=== PATIENT | male | born 1950 | race Caucasian/White ===

== ENCOUNTER 2018-02-16 07:07 | Day surgery (SDC) | payer MEDICARE, OTHER ==
[2018-02-15 09:52] VITALS: BMI 25.8
[2018-02-16] MEDS ORDERED: Midazolam HCl 2 mg/2 ml Vial ONE (09:25)
--- NOTE | 2018-02-16 12:13 | OP ---
DATE OF PROCEDURE: 02/16/2018 SURGEON: Parish Mcclure M.D. PROCEDURES: EGD and colonoscopy. PREPROCEDURE DIAGNOSES: Reflux and prior history of adenomatous colon polyps, last colonoscopy in . POSTOPERATIVE DIAGNOSES: 1. Mild reflux esophagitis, LA grade A. 2. Otherwise, normal esophagogastroduodenoscopy. 3. Normal colonoscopy. RECOMMENDATIONS: 1. Repeat colonoscopy in 5 years. 2. Antireflux regimen. I have instructed him in use of p.r.n. OTC PPIs if needed. ANESTHESIA: TIVA. PROCEDURE IN DETAIL: After the patient was informed of the risks, benefits and possible complication s of endoscopy and perforation, bleeding, reaction to medication, and aspiration, informed consent wa s obtained. The patient was brought to endoscopy suite where he was sedated in gradual fashion. Onc e he was comfortable, a bite block was placed in the incisura orifice. The endoscope was advanced in to the esophagus, stomach, second and third portion of the duodenum and slowly removed. There was go od visualization of mucosa. The duodenum was normal. The stomach were normal in forward and retrofl exed views. In the distal esophagus the Z-line was normal. There was mild erythema at the Z-line co nsistent with very mild reflux esophagitis. The esophagus was otherwise normal. The scope was remov ed. The patient was turned in the room and a rectal examination performed which was normal. The endoscop e was advanced in the anal canal through the colon to cecum which was identified by the ileocecal justa ve and appendiceal orifice. The prep was very good. The right colon was looked at in forward and re troflexed views. The remaining colon was visualized well and looking behind folds with no polyps see n. Retroflexion in the rectum was normal. The scope was removed. The patient tolerated the procedu re well, no complications.
[2018-02-16] MEDS ORDERED: Lidocaine 1% PF 5 ML VIAL ONE (14:57)
[2018-02-16] MEDS ORDERED: PROPOFOL 200 MG/20 ML VIAL ONE (14:57)
== END 2018-02-16 11:13 | disposition home or self-care (01) ==
LOC: SDC 07:07
PROVIDERS: ATTEND Internal Medicine Gastroenterology
PROC: 0DJ08ZZ Inspection of Upper Intestinal Tract, Via Natural or Artificial Opening Endoscopic (ICD-10-PCS; principal; 2018-02-16)
PROC: 0DJD8ZZ Inspection of Lower Intestinal Tract, Via Natural or Artificial Opening Endoscopic (ICD-10-PCS; 2018-02-16)
DX: Z12.11 Encounter for screening for malignant neoplasm of colon (principal); K21.9 Gastro-esophageal reflux disease without esophagitis; N40.0 Benign prostatic hyperplasia without lower urinary tract symptoms; M10.9 Gout, unspecified; Z86.010 Personal history of colon polyps; Z87.891 Personal history of nicotine dependence; Z79.82 Long term (current) use of aspirin; Z79.899 Other long term (current) drug therapy; Z88.8 Allergy status to other drugs, medicaments and biological substances; Z91.048 Other nonmedicinal substance allergy status
CPT/HCPCS: 43235; G0105; J2001; J2250; J2704

== ENCOUNTER 2019-03-22 10:06 | Outpatient (CLI) | payer MEDICARE, OTHER ==
[2019-03-22 11:47] LABS: Hemoglobin 13.7 g/dL (14.0-18.0); Mean Corpuscular HGB CONC 32.3 g/dL (32.0-36.0); Mean Corpuscular Hemoglobin 30.9 pg (27.0-31.0); Mean Corpuscular Volume 95.4 fL (78.0-98.0); Platelet Count 186 thou/uL (130-400); RBC Distribution Width 12.2 % (11.5-14.5); Red Blood Cell (RBC) Count 4.45 mill/uL (4.70-6.10); White Blood Cell (WBC) Count 3.8 thou/uL (4.8-10.8)
[2019-03-22 11:53] LABS: PTT 29.6 SEC (22.9-36.1); Prothrombin Time 13.5 SEC (12.0-14.7)
[2019-03-22 12:04] LABS: Bilirubin Negative (Negative); Blood, Urine Negative (Negative); Clarity CLEAR (Clear); Glucose, Urine (Dipstick) Negative (Negative); Leukocyte Negative (Negative); Nitrite Negative (Negative); Protein, Urine (Dipstick) Negative (Neg-Trace); Specific Gravity, Urine 1.019 (1.002-1.036); Urobilinogen 0.2 mg/dL (0.2-1.0)
[2019-03-22 12:07] LABS: Bacteria/HPF None Seen HPF (None Seen); Hyaline Casts/LPF 0-3 HYALINE CAST LPF (0-3 Hyaline); RBC/HPF 0-3 HPF (0-3); Squamous Epithelial 0-3 HPF (0-3); WBC/HPF 0-3 HPF (0-3)
[2019-03-22 12:18] LABS: Anion Gap 13 mmol/L (10-20); BUN (Urea Nitrogen) 16 mg/dL (8.4-25.7); Calc. Creatinine Clearance 0 mL/min (70-130); Calcium 9.2 mg/dL (7.8-10.44); Carbon Dioxide 27 mmol/L (23-31); Chloride 104 mmol/L (98-107); Estimated GFR-MDRD 73; Glucose 87 mg/dL (80-115); Potassium 4.6 mmol/L (3.5-5.1); Sodium 139 mmol/L (136-145)
== END 2019-03-22 10:07 | disposition home or self-care (01) ==
LOC: LABBT 10:06
PROVIDERS: ATTEND Urology
DX: Z01.818 Encounter for other preprocedural examination (principal); N40.0 Benign prostatic hyperplasia without lower urinary tract symptoms
CPT/HCPCS: 80048; 81001; 85027; 85610; 85730; 87086; 93005; 93010

== ENCOUNTER 2019-03-30 06:51 | Day surgery (SDC) | payer MEDICARE, OTHER ==
[2019-03-22 10:19] VITALS: BMI 25.7
[2019-03-30] MEDS ORDERED: Levofloxacin 500 mg/D5W 100 ml Premix Bag ONE (09:35)
[2019-03-30] MEDS ORDERED: Midazolam HCl 2 mg/2 ml Vial ONE (10:48)
[2019-03-30] MEDS ORDERED: Fentanyl 100 MCG/2 ML VIAL ONE (10:48)
[2019-03-30] MEDS ORDERED: Propofol 500 MG/50 ML VIAL ONE (10:49)
[2019-03-30] MEDS ORDERED: Ketamine 50 MG/ML (10ML VIAL) ONE (10:49)
--- NOTE | 2019-03-30 14:30 | OP ---
DATE OF PROCEDURE: 03/30/2019 SERVICE: Urology. PREOPERATIVE DIAGNOSIS: Benign prostatic hyperplasia with obstruction. POSTOPERATIVE DIAGNOSIS: Benign prostatic hyperplasia with obstruction. PROCEDURE PERFORMED: UroLift procedure. INDICATION FOR PROCEDURE: Mr. Gil is a 68-year-old white male, who presented to me for BPH symptoms. He has been on both Rapaflo and Flomax and does not want to remain on either, although he is receiving some benefit from these medications. We discussed procedural based treatments including UroLift, which he has a lot of interest in and would like to proceed to forward with. Risks and benefits were discussed. DESCRIPTION OF PROCEDURE: After identification of armband and verification of consent, the patient was brought back to the operating room, where he underwent total intravenous anesthesia. He was placed in dorsal lithotomy position and prepped and draped in usual sterile fashion. After appropriate time-out, a lubricated 21-Pashto rigid cystoscope was introduced per urethra into the bladder. The bladder was normal as identified on previous cystoscopy. The prostate was obstructive. The UroLift device was brought in and the initial implant placed on the right lateral bladder closer to the bladder neck. We came approximately 2 cm proximal to the bladder neck with inward compression and 20-degree angling and fired the initial needle. The UroLift device was advanced until the white line was seen in the keyhole and the steel implant deployed. This did allow for good retraction of the prostate without being too close to the bladder neck. This procedure was repeated on the opposite side near the bladder neck and again near the verumontanum, but there was still some intervening lobes along the lateral aspect of the prostate that seemed to be somewhat obstructive. We decided to put 2 additional implants just below the original implants on the middle aspect of the prostate and 2 additional implants were deployed there, which resulted in a nice anterior channel which was wide open. There was a moderate amount of bleeding, which was not severe. The bladder was left full and the cystoscope was removed. An 18-Pashto Paul catheter was placed with ease into the bladder. A 10 mL of sterile water was placed into the balloon. This catheter was hooked up to gravity drainage. The patient was then awakened, taken to Day Stay for recovery in stable condition. COMPLICATIONS: None. ESTIMATED BLOOD LOSS: Minimal. RETAINED TUBES AND DRAINS: An 18-Pashto Paul catheter. SPECIMENS: None. IMPLANTS: Six UroLift device implants were used. DISPOSITION: We will monitor the patient's urine. He will either be sent home with or without a catheter based on the level of hematuria and voiding status. Job ID: [id number]
== END 2019-03-30 13:40 | disposition home or self-care (01) ==
LOC: SDC 06:51
PROVIDERS: ATTEND Urology
PROC: 0T7D8DZ Dilation of Urethra with Intraluminal Device, Via Natural or Artificial Opening Endoscopic (ICD-10-PCS; principal; 2019-03-30)
DX: N40.1 Benign prostatic hyperplasia with lower urinary tract symptoms (principal); N13.8 Other obstructive and reflux uropathy; K59.00 Constipation, unspecified; M10.9 Gout, unspecified; F17.290 Nicotine dependence, other tobacco product, uncomplicated; I34.1 Nonrheumatic mitral (valve) prolapse; I10 Essential (primary) hypertension; E27.40 Unspecified adrenocortical insufficiency; N52.01 Erectile dysfunction due to arterial insufficiency; Z79.82 Long term (current) use of aspirin; Z79.899 Other long term (current) drug therapy; Z88.8 Allergy status to other drugs, medicaments and biological substances; Z91.048 Other nonmedicinal substance allergy status; Z98.890 Other specified postprocedural states
CPT/HCPCS: C1889; J1956; J2250; J2704; J3010

== ENCOUNTER 2019-08-23 08:32 | Outpatient (CLI) | payer MEDICARE, OTHER ==
--- NOTE | 2019-08-23 10:29 | CT ---
CTA CHEST WITH IV CONTRAST AND 3D POST PROCESSING: HISTORY: Thoracic aortic aneurysm. COMPARISON: 06/27/2016 FINDINGS: The ectatic ascending thoracic aorta is stable, measuring 4 x 4.2 cm. The aortic lumen is well opacif ied without evidence of dissection. The pulmonary arteries are well opacified without filling defects to suggest pulmonary embolism. No pleural or pericardial effusions are seen. No pneumothoraces, focal areas of consolidation, lung n odules or masses are identified. Cysts in the liver are stable. IMPRESSION: 1. Stable ectatic thoracic aorta since 06/27/2016. 2. No CT evidence of thoracic aortic dissection of pulmonary embolism. POS: [facility]
[2019-08-23] MEDS ORDERED: Iopamidol-370 76% 500 ML 1 ML ONE (11:31)
== END 2019-08-23 08:33 | disposition home or self-care (01) ==
LOC: BICCT 08:32
PROVIDERS: ATTEND Internal Medicine Cardiovascular Disease
DX: I71.2 Thoracic aortic aneurysm, without rupture (principal)
CPT/HCPCS: 71275; 82565; Q9967

== ENCOUNTER 2020-09-05 13:05 | Outpatient (CLI) | payer MEDICARE, OTHER ==
[2020-09-05] MEDS ORDERED: Iopamidol 370 76% 100 ML VIAL ONE (13:44)
--- NOTE | 2020-09-05 14:25 | CT ---
Exam: CT angiogram chest with 3-D rendering: HISTORY: Ascending thoracic aortic aneurysm. Loop recorder overlying the left chest. COMPARISON: 08/23/2019 There is mild dilatation of the aortic root measures approximately 4.1 cm transversely. No evidence f or other focal aneurysm or dissection. Stable liver cysts. Loop recorder overlying the left chest. Probable small hiatal hernia. Stable appearance of the chest. No evidence for aortic dissection.
== END 2020-09-05 13:06 | disposition home or self-care (01) ==
LOC: BICCT 13:05
PROVIDERS: ATTEND Internal Medicine Cardiovascular Disease
DX: I71.2 Thoracic aortic aneurysm, without rupture (principal)
CPT/HCPCS: 71275; 82565; Q9967

== ENCOUNTER 2021-10-31 07:42 | Outpatient (CLI) | payer MEDICARE, BC | END 2021-10-31 07:43 | disposition home or self-care (01) | LOC: BICULT 07:42 | PROVIDERS: ATTEND Internal Medicine Gastroenterology | DX: R19.7 Diarrhea, unspecified (principal); K76.89 Other specified diseases of liver | CPT/HCPCS: 76700 ==

== ENCOUNTER 2022-11-04 07:54 | Outpatient (CLI) | payer MEDICARE, BC ==
[2022-11-04] MEDS ORDERED: Iopamidol 370 76% 100 ML VIAL ONE (09:13)
== END 2022-11-04 07:55 | disposition home or self-care (01) ==
LOC: CT 07:54
PROVIDERS: ATTEND Internal Medicine Cardiovascular Disease
DX: I35.9 Nonrheumatic aortic valve disorder, unspecified (principal); I71.21 Aneurysm of the ascending aorta, without rupture
CPT/HCPCS: 71275; 82565; Q9967

== ENCOUNTER 2024-02-22 10:05 | Outpatient (CLI) | payer MEDICARE, BC ==
[2024-02-22] MEDS ORDERED: Iopamidol 370 76% 100 ML VIAL ONE (11:20)
== END 2024-02-22 10:06 | disposition home or self-care (01) ==
LOC: BICCT 10:05
PROVIDERS: ATTEND Physician Assistant
DX: I71.21 Aneurysm of the ascending aorta, without rupture (principal); G45.3 Amaurosis fugax
CPT/HCPCS: 71275; 82565; Q9967

== ENCOUNTER 2024-10-20 10:56 | Outpatient (CLI) | payer MEDICARE, BC ==
[2024-10-20 12:47] LABS: #Basophils 0.06 10x3/uL (0.0-0.2); %Basophils 1.3 % (0.0-1.0); %Lymphocytes 31.6 % (21.0-51.0); %Monocytes 10.1 % (0.0-10.0); %Neutrophils 47.8 % (42.0-75.0); Hematocrit 39.9 % (42.0-52.0); Hemoglobin 13.4 g/dL (14.0-18.0); Mean Corpuscular HGB CONC 33.6 g/dL (32.0-36.0); Mean Corpuscular Volume 92.4 fL (78.0-98.0); Mean Platelet Volume 10.4 fL (7.4-10.4); Platelet Count 241 10x3/uL (130-400); RBC Distribution Width 13.1 % (11.5-14.5); Red Blood Cell (RBC) Count 4.32 mill/uL (4.70-6.10)
[2024-10-20 12:59] LABS: Bacteria/HPF None Seen HPF (None Seen); Bilirubin Negative (Negative); Blood, Urine Negative (Negative); Clarity Clear (Clear); Glucose, Urine (Dipstick) Normal (Negative); Ketone, Urine Negative (Negative); Leukocyte Negative Leu/uL (Negative); Nitrite Negative (Negative); Protein, Urine (Dipstick) Negative (Neg-Trace); RBC/HPF None Seen HPF (0-3); Specific Gravity, Urine 1.008 (1.002-1.036); Squamous Epithelial None Seen HPF (0-3); Urobilinogen Normal mg/dL (Less than 2); WBC/HPF 0-3 HPF (0-3)
[2024-10-20 13:03] LABS: Anion Gap 9 mmol/L (10-20); BUN (Urea Nitrogen) 16 mg/dL (8.4-25.7); Calc. Creatinine Clearance 0 mL/min (70-130); Calcium 9.4 mg/dL (7.8-10.44); Carbon Dioxide 29 mmol/L (23-31); Chloride 105 mmol/L (98-107); Estimated GFR 87; Glucose 94 mg/dL (83-110); Potassium 4.2 mmol/L (3.5-5.1); Sodium 139 mmol/L (136-145)
[2024-10-20 14:38] LABS: INR-International Normal Ratio 0.9; PTT 28.1 sec (22.9-36.1); Prothrombin Time 12.6 sec (12.0-14.7)
== END 2024-10-20 10:57 | disposition home or self-care (01) ==
LOC: LABBT 10:56
PROVIDERS: ATTEND Urology
DX: Z01.818 Encounter for other preprocedural examination (principal); N40.1 Benign prostatic hyperplasia with lower urinary tract symptoms
CPT/HCPCS: 80048; 81001; 85025; 85610; 85730; 87086; 93005; 93010

== ENCOUNTER 2024-11-02 07:28 | Day surgery (SDC) | payer MEDICARE, BC ==
[2024-10-20 11:14] VITALS: BMI 25.4
[2024-11-02] MEDS ORDERED: Lidocaine 1% MPF 2 ML VIAL ONE (08:59)
[2024-11-02] MEDS ORDERED: LevoFLOXacin D5W 500 mg (100 mL) BAG ONE (09:00)
[2024-11-02] MEDS ORDERED: fentaNYL PF 100 MCG/2 ML SYRINGE ONE (09:16)
[2024-11-02] MEDS ORDERED: Lidocaine 1% PF 5 ML VIAL ONE (09:17)
[2024-11-02] MEDS ORDERED: Ondansetron PF 4 MG/2 ML Vial ONE (09:17)
[2024-11-02] MEDS ORDERED: PROPOFOL 20 ML ONE (09:17)
[2024-11-02] MEDS ORDERED: Dexamethasone 20 MG/5 ML VIAL ONE (09:17)
[2024-11-02] MEDS ORDERED: Lidocaine 2% 6 ML (Jelly) SYR ONE (09:17)
[2024-11-02] MEDS ORDERED: Midazolam HCl 2 mg/2 ml Vial ONE (09:35)
[2024-11-02] MEDS ORDERED: ePHEDrine Sulfate 50 MG/10 ML VIAL ONE (09:51)
[2024-11-02] MEDS ORDERED: Oxybutynin 5 MG TAB ONE (11:15)
[2024-11-02] MEDS ORDERED: Phenazopyridine HCl 100 MG TAB ONE (11:15)
== END 2024-11-02 15:08 | disposition home or self-care (01) ==
LOC: SDC 07:28
PROVIDERS: ATTEND Urology
PROC: 0V508ZZ Destruction of Prostate, Via Natural or Artificial Opening Endoscopic (ICD-10-PCS; principal; 2024-11-02)
DX: N40.1 Benign prostatic hyperplasia with lower urinary tract symptoms (principal); N13.8 Other obstructive and reflux uropathy; I10 Essential (primary) hypertension; I71.20 Thoracic aortic aneurysm, without rupture, unspecified; K21.9 Gastro-esophageal reflux disease without esophagitis; J18.9 Pneumonia, unspecified organism; G43.909 Migraine, unspecified, not intractable, without status migrainosus; Z85.828 Personal history of other malignant neoplasm of skin; Z96.641 Presence of right artificial hip joint; Z91.048 Other nonmedicinal substance allergy status; Z91.041 Radiographic dye allergy status; Z79.02 Long term (current) use of antithrombotics/antiplatelets; Z79.82 Long term (current) use of aspirin
CPT/HCPCS: 52601; A4333; J1100; J1956; J2250; J2405; J2704

== ENCOUNTER 2025-08-28 08:41 | Outpatient (CLI) | payer MEDICARE, BC ==
[2025-08-28 09:13] LABS: Estimated GFR - POC 70.0
== END 2025-08-28 08:42 | disposition home or self-care (01) ==
LOC: CT 08:41
PROVIDERS: ATTEND Internal Medicine Cardiovascular Disease
DX: I71.20 Thoracic aortic aneurysm, without rupture, unspecified (principal)
CPT/HCPCS: 36415; 71275; 82565